=== PATIENT | female | born 1960 | race Caucasian/White ===

== ENCOUNTER 2020-03-24 11:03 | Day surgery (SDC) | payer MEDICAID ==
[2020-03-24] MEDS ORDERED: Ropivacaine 0.5% 5 MG/ML 30 ML SDV INJECT ONE (12:00)
[2020-03-24] MEDS ORDERED: Betamethasone Acetate/Betamethasone Sod Phosphate 30 MG/5 ML MDV EPIDUR ONE (12:00)
[2020-03-24] MEDS ORDERED: Lidocaine 2% 5 ML SDV INJECT ONE (12:00)
[2020-03-24] MEDS ORDERED: Iopamidol 200-M 10 ML vial ITHECAL ONE (12:00)
--- NOTE | 2020-03-24 17:57 | OR ---
SURGEON: Francine Cedillo D.O. DATE OF PROCEDURE: 03/24/2020 PREOPERATIVE DIAGNOSES: 1. Lumbar L5-S1 degenerative disk disease. 2. Chronic low back pain. 3. Lumbar spondylosis. 4. Lumbar radiculopathy, L5-S1. POSTOPERATIVE DIAGNOSES: 1. Lumbar L5-S1 degenerative disk disease. 2. Chronic low back pain. 3. Lumbar spondylosis. 4. Lumbar radiculopathy, L5-S1. PROCEDURES PERFORMED: 1. Left S1 transforaminal epidural steroid injection. 2. Fluoroscopic guidance for needle placement. 3. Local with oral Valium for sedation. OR STAFF PRESENT: 1. Katie Rios RN. 2. RT Melanie. 3. Anny Gustafson RN. SCREENING QUESTIONS: The patient answered "no" to all of the following questions: 1. Are you allergic to iodine, Betadine or latex? 2. Do you have a bleeding disorder? 3. Do you have any joint replacements, heart valve replacements, or a pacemaker? 4. Are you allergic to anti-inflammatories or blood thinners? 5. Do you have any current local or systemic infections? DESCRIPTION OF PROCEDURE: The patient had the procedure thoroughly explained including risks, benefits and alternatives. Consent was signed in my clinic indicating understanding and willingness to proceed. The patient presented to [facility] [place] where the patient was escorted to the dressing room to disrobe and change into a hospital gown. Preoperative vital signs were taken and stable. The patient reported that Valium was taken prior to the procedure. The patient was brought to the procedure room and placed in the prone position on the table. A pillow was placed under the abdomen in order to flatten the lumbar lordosis. The back was prepped with ChloraPrep and sterilely draped. All personnel in the operating room were dressed in appropriate attire including surgical scrubs, head and shoe covers. This was to ensure sterility while in the treatment room. During the time fluoroscopy was in use, all personnel in the operating room wore lead wallace with thyroid collars. Sterile technique was used during the procedure. The fluoroscope was placed for the left S1 transforaminal epidural steroid injection. There was no sign of infection at the skin site for needle insertion. The skin was anesthetized with 2% lidocaine with a 27 gauge 1-1/2 inch needle. Then a 22 gauge 3-1/2 inch spinal needle, advanced to the S1. Under direct fluoroscopic guidance needle position was verified in three views; AP, oblique and lateral, with 0.2 cubic centimeters increments of Isovue-200 dye. No intravascular flow pattern was observed under live fluoroscopy. Then 12 milligrams of Celestone was slowly injected after negative aspiration of heme, cerebrospinal fluid and no paresthesias were noted. The needle was cleared prior to removal from the skin. No adverse reactions were noted. The patient was brought to the recovery room awake and in good condition by my staff. The patient was monitored and discharge instructions were given after a brief stay in the recovery area. Both oral and written discharge and follow up instructions were given. The patient will follow up in the clinic in 3-4 weeks post procedure to evaluate the efficacy. The patient verbalized understanding including understanding of those signs and symptoms that would require emergency care and knows how to contact the office if there are any problems or questions in the meantime. PREOPERATIVE PAIN: 5/10. POSTOPERATIVE PAIN: 2/10. FOLLOWUP: In the Pain Clinic in 3 weeks. TARAN / JOSE /[id number] KEREN
== END 2020-03-24 13:05 | disposition home or self-care (01) ==
LOC: MW.SDS 11:03
PROVIDERS: ATTEND Anesthesiology
DX: G89.29 Other chronic pain (principal); M51.17 Intervertebral disc disorders with radiculopathy, lumbosacral region; M51.16 Intervertebral disc disorders with radiculopathy, lumbar region; M47.27 Other spondylosis with radiculopathy, lumbosacral region; M79.18 Myalgia, other site; E78.5 Hyperlipidemia, unspecified; F41.8 Other specified anxiety disorders; K21.9 Gastro-esophageal reflux disease without esophagitis; E03.9 Hypothyroidism, unspecified; Z79.890 Hormone replacement therapy; Z87.828 Personal history of other (healed) physical injury and trauma; Z88.2 Allergy status to sulfonamides; Z79.899 Other long term (current) drug therapy; Z87.891 Personal history of nicotine dependence
CPT/HCPCS: 64483; J0702; J2001; J2795; Q9966; 62323

== ENCOUNTER 2020-08-05 08:26 | Day surgery (SDC) | payer MEDICAID ==
[~2020-08-05 08:26] MED LIST: Glycopyrrolate 0.2 MG/ML SDV ONE; Lactated Ringers 1,000 ML IV SCH; Lidocaine 2% 5 ML SDV ONE; Midazolam 1 MG/ML 2 ML SDV ONE; Propofol 200 MG/20 ML SDV ONE
--- NOTE | 2020-08-05 09:25 | PCM.PREANE ---
Preanesthetic Assessment - Anesthesia/Transfusion/Family Hx Anesthesia History: Prior Anesthesia Without Reaction Other Type of Anesthesia Reaction Comment: denies any problems with anesthesia Family History of Anesthesia Reaction: No Transfusion History: No Prior Transfusion(s) - Review of Systems General: No Symptoms Pulmonary: No Symptoms Cardiovascular: No Symptoms Gastrointestinal: No Symptoms Neurological: No Symptoms Other: Reports: None - Physical Assessment NPO Status Date: 08/04/20 Height: 5 ft 4 in Weight: 79.379 kg ASA Class: 2 Mental Status: Alert & Oriented x3 Airway Class: Mallampati = 2 Dentition: Reports: Normal Dentition, Point Roberts(s) ROM/Head Extension: Full Lungs: Clear to Auscultation, Normal Respiratory Effort Cardiovascular: Regular Rate, Regular Rhythm - Allergies Allergies/Adverse Reactions: Allergies Allergy/AdvReac Type Severity Reaction Status Date / Time Dairy Products Allergy Stomach Verified 07/30/20 09:32 Upset sulfamethoxazole Allergy Drowsiness Verified 07/30/20 08:56 - Blood Blood Available: No - Anesthesia Plan Pre-Op Medication Ordered: None - Acknowledgements Anesthesia Type Planned: General Anesthesia (tiva) Pt an Appropriate Candidate for the Planned Anesthesia: Yes Alternatives and Risks of Anesthesia Discussed w Pt/Guardian: Yes Pt/Guardian Understands and Agrees with Anesthesia Plan: Yes Additional Comments: anes prob list: anx, gerd PLAN: tiva PreAnesthesia Questionnaire HEENT History: Reports: Other (See Below) Other HEENT History: wears glasses Cardiovascular History: Reports: None Respiratory History: Reports: None Gastrointestinal History: Reports: Chronic Constipation, Diverticulosis, GERD Genitourinary History: Reports: None Musculoskeletal History: Reports: Back Pain, Chronic Other Musculoskeletal History: chronic back and leg pain, DDD, herniated lumbar discs Neurological History: Reports: Migraines Psychiatric History: Reports: Anxiety, Depression Endocrine/Metabolic History: Reports: Hypothyroidism Hematologic History: Reports: None Immunologic History: Reports: None Oncologic (Cancer) History: Reports: None Dermatologic History: Reports: None - Infectious Disease History Infectious Disease History: Reports: None - Past Surgical History Head Surgeries/Procedures: Reports: None HEENT Surgical History: Reports: None Cardiovascular Surgical History: Reports: None Respiratory Surgical History: Reports: None GI Surgical History: Reports: Cholecystectomy, Colonoscopy, EGD Female Surgical History: Reports: Breast Biopsy, D&C, Hysterectomy, Salpingo-Oophorectomy Other Female Surgeries/Procedures: laparotomy with ovarian cystectomy, needle core left breast biopsy Endocrine Surgical History: Reports: None Neurological Surgical History: Reports: None Musculoskeletal Surgical History: Reports: Other (See Below) Other Musculoskeletal Surgeries/Procedures:: cyst removed from foot Oncologic Surgical History: Reports: Biopsy of Breast Dermatological Surgical History: Reports: None - SUBSTANCE USE Tobacco Use Status *Q: Former Tobacco User Tobacco Use Within Last Twelve Months: No - HOME MEDS Home Medications: Home Meds Cholecalciferol (Vitamin D3) [Vitamin D3] 2,000 unit PO DAILY 08/26/14 [History] Escitalopram Oxalate 10 mg PO DAILY 07/30/20 [History] Esomeprazole Magnesium [Nexium] 1 tab PO ASDIRECTED PRN 07/30/20 [History] Levothyroxine Sodium [Synthroid] 75 mcg PO DAILY 07/30/20 [History] Sennosides/Docusate Sodium [Senna-Docusate Sodium Tablet] 4 - 8 tab PO BEDTIME PRN 07/30/20 [History] oxyCODONE HCl [Oxycodone HCl] 10 mg PO QID PRN 07/30/20 [History] tiZANidine HCl [Tizanidine HCl] 4 mg PO BEDTIME 07/30/20 [History] - CURRENT (IN HOUSE) MEDS Current Meds: Current Medications Lactated Ringer's (Ringers, Lactated) 1,000 mls @ 125 mls/hr IV ASDIRECTED FIGUEROA Discontinued Medications Glycopyrrolate (Robinul) Confirm Administered Dose 0.2 mg .ROUTE .STK-MED ONE Stop: 08/05/20 07:16 Lidocaine (Xylocaine-Mpf 2%) Confirm Administered Dose 5 ml .ROUTE .STK-MED ONE Stop: 08/05/20 07:16 Midazolam HCl (Versed 1 Mg/Ml) Confirm Administered Dose 2 mg .ROUTE .STK-MED ONE Stop: 08/05/20 07:16 Propofol (Diprivan 20 Ml) Confirm Administered Dose 600 mg .ROUTE .STK-MED ONE Stop: 08/05/20 07:16
--- NOTE | 2020-08-05 10:31 | PCM.OPNOTE ---
- General Post-Op/Procedure Note Date of Surgery/Procedure: 08/05/20 Operative Procedure(s): egd w bx. colonoscopy w bx Findings: see [id number] Pre Op Diagnosis: change in bowel habits and gerd Post-Op Diagnosis: Same Anesthesia Technique: Moderate Sedation Primary Surgeon: Lizandro Field Pathology: egd bx random colon bx Complications: None Condition: Good
[2020-08-05 10:37] VITALS: BP 105/49; PULSE 69
--- NOTE | 2020-08-05 10:51 | PCM.POSTAN ---
POST ANESTHESIA ASSESSMENT - MENTAL STATUS Mental Status: Alert, Oriented - VITAL SIGNS Vital Signs: Last Vital Signs Temp 96.8 F L 08/05/20 09:30 Pulse 69 08/05/20 10:35 Resp 11 L 08/05/20 10:35 BP 105/49 L 08/05/20 10:35 Pulse Ox 94 L 08/05/20 10:35 - RESPIRATORY Respiratory Status: Respiratory Rate WNL, Airway Patent, O2 Saturation Stable - CARDIOVASCULAR CV Status: Pulse Rate WNL, Blood Pressure Stable - GASTROINTESTINAL GI Status: No Symptoms - POST OP HYDRATION Hydration Status: Adequate & Stable
--- NOTE | 2020-08-05 10:51 | PCM48HPAN ---
Post Anesthesia Note - EVALUATION WITHIN 48HRS OF ANESTHETIC Vital Signs in Normal Range: Yes Patient Participated in Evaluation: Yes Respiratory Function Stable: Yes Airway Patent: Yes Cardiovascular Function Stable: Yes Hydration Status Stable: Yes Pain Control Satisfactory: Yes Nausea and Vomiting Control Satisfactory: Yes Mental Status Recovered: Yes Vital Signs: Last Vital Signs Temp 96.8 F L 08/05/20 09:30 Pulse 69 08/05/20 10:35 Resp 11 L 08/05/20 10:35 BP 105/49 L 08/05/20 10:35 Pulse Ox 94 L 08/05/20 10:35
--- NOTE | 2020-08-05 15:52 | OR ---
SURGEON: Lizandro Field MD DATE OF PROCEDURE: 08/05/2020 PREOPERATIVE DIAGNOSES: Change in bowel habit and acid reflux. PROCEDURES PERFORMED: Esophagogastroduodenoscopy with biopsy and colonoscopy with random biopsy. DESCRIPTION OF PROCEDURE: EGD: The patient was taken to the endoscopy room, and with the BOTTLE BLOWING MACHINE TENDER, Diprivan was administered. A well-lubricated EGD scope was gently inserted through the oropharynx, down the esophagus, passing through the gastroesophageal junction, into the stomach. The mucosa was examined upon the passage. Any etiology will be noted. Once in the stomach, we continued to advance to the distal antrum, passed through the pylorus into the second portion of the duodenum. Again, the mucosa was examined for any abnormality and etiology. The scope was then retrieved back to the stomach and then retroflexed to look at the fundus of the stomach. If a biopsy was indicated, we will biopsy the antrum, body, and gastroesophageal junction. The air will be sucked out while the scope is retrieved to reduce the patient's discomfort. The patient tolerated the procedure well. There were no intraoperative complications. Dr. Field was present through the whole procedure. Prior to surgery, a time-out had been called, the patient identified, procedure identified and antibiotic administered. The patient was taken to the endoscopy room. A time out was called, patient identified, and procedure identified. Diprivan was then administrated. Patient went from awake to sleep, hearing doctor talking or door closing is normal. Perineum inspection and digital examination were then performed. A well- lubricated colonoscope was gently inserted through the rectum, advanced past the rectosigmoid junction, the descending colon, splenic flexure, transverse colon, hepatic flexure, ascending colon, arrived to the cecum. Cecum was identified as dictated in the finding. Then the scope was carefully withdrawn while attention was paid to the mucosal surface for any abnormality. Air will be sucked out during the scope withdrawal. At the rectum, retroflexed to examine any rectal diseases, fistula or hemorrhoids. During mucosal examination, abnormality or polyp was noted; picture taken and biopsy performed. Patient tolerated procedure well. There were no intraoperative complications, and Dr. Field was present throughout the whole procedure. FINDINGS: EGD findings: 1. The patient is easily sedated with BOTTLE BLOWING MACHINE TENDER and Diprivan, the patient is soundly snoring. 2. Proximal esophagus at distance 33 cm at GE junction has a little pathology and no stricture, inflammation, ulcer, none of those. At GE junction at 33, the patient shows flame like salmon-colored change, suggests moderate amount of acid reflux and no ulcer observed. Antrum is a little bit inflamed. Duodenum is grossly normal. Retroflexed look at the fundus of stomach, the patient has mild hiatal hernia. Biopsy done at antrum, body, and GE junction at 33 and sucked out the gas while scope pulling out. During the whole study, there is no blood, ulcer, or food particle observed. The patient also had some very tiny polyps in the stomach and one of them was biopsied. Colonoscopy findings: 1. The patient is easily sedated with BOTTLE BLOWING MACHINE TENDER and Diprivan, the patient is soundly snoring. 2. Bowel prep is left to be desirable. It is not very bad, but do have some moderate amount of liquid stool and required some irrigation. No semi- formed stool, no stool ball. The patient's colon rather straightforward. Cecum indicated by ileocecal fold, one-to-one indentation, appendiceal orifice. ScopeGuide is pointing south. Mucosa examined upon scope pulling out with constant irrigation. The patient does not have diverticulosis, polyp, mass, growth, inflammation, stricture, AV malformation, none of those. Random biopsies done as the patient has alternating constipation and diarrhea. The patient has some anal tags, suggests hemorrhoid in the past. The patient also has some external hemorrhoids. The patient would benefit from repeat colonoscopy, depends on the pathology of the random biopsy. YECENIA / JOSE /[id number]
== END 2020-08-05 11:10 | disposition home or self-care (01) ==
LOC: MW.SDS 08:26
PROVIDERS: ATTEND Surgery
DX: K59.00 Constipation, unspecified (principal); R19.7 Diarrhea, unspecified; K31.7 Polyp of stomach and duodenum; K21.9 Gastro-esophageal reflux disease without esophagitis; K64.4 Residual hemorrhoidal skin tags; K44.9 Diaphragmatic hernia without obstruction or gangrene; R19.5 Other fecal abnormalities; F32.9 Major depressive disorder, single episode, unspecified; E78.5 Hyperlipidemia, unspecified; E03.9 Hypothyroidism, unspecified; M79.18 Myalgia, other site; F41.9 Anxiety disorder, unspecified; Z88.2 Allergy status to sulfonamides; Z79.899 Other long term (current) drug therapy; Z79.890 Hormone replacement therapy; Z90.49 Acquired absence of other specified parts of digestive tract; Z98.890 Other specified postprocedural states; Z87.891 Personal history of nicotine dependence; Z91.011 Allergy to milk products
CPT/HCPCS: 43239; 45380; 88305; 88312; J2001; J2250; J2704; J3490; J7120

== ENCOUNTER 2020-11-10 11:25 | Day surgery (SDC) | payer MEDICAID ==
[2020-11-10] MEDS ORDERED: Betamethasone Acetate/Betamethasone Sod Phosphate 30 MG/5 ML MDV EPIDUR ONE (12:00)
[2020-11-10] MEDS ORDERED: Iopamidol 200-M 10 ML vial ITHECAL ONE (12:00)
[2020-11-10] MEDS ORDERED: Ropivacaine 0.5% 5 MG/ML 30 ML SDV INJECT ONE (12:00)
[2020-11-10] MEDS ORDERED: Lidocaine 2% 5 ML SDV INJECT ONE (12:00)
--- NOTE | 2020-11-10 15:10 | OR ---
SURGEON: Francine Cedillo D.O. DATE OF PROCEDURE: 11/10/2020 ASSISTANTS: OR staff present: 1. Anny Gustafson RN. 2. Lorraine George RN. 3. Lorraine Benson RT. WOUND CLASS: I. PREOPERATIVE DIAGNOSES: 1. Lumbar S1 radiculopathy, bilateral lower extremities. 2. Chronic low back pain. 3. Lumbar degenerative disk disease, L5-S1. POSTOPERATIVE DIAGNOSES: 1. Lumbar S1 radiculopathy, bilateral lower extremities. 2. Chronic low back pain. 3. Lumbar degenerative disk disease, L5-S1. PROCEDURES PERFORMED: 1. Right S1 transforaminal epidural steroid injection. 2. Left S1 transforaminal epidural steroid injection. 3. Fluoroscopic guidance for needle placement. 4. Local with oral Valium for sedation. SCREENING QUESTIONS: The patient answered "no" to all of the following questions: 1. Are you allergic to iodine, Betadine or latex? 2. Do you have a bleeding disorder? 3. Do you have any joint replacements, heart valve replacements, or a pacemaker? 4. Are you allergic to anti-inflammatories or blood thinners? 5. Do you have any current local or systemic infections? DESCRIPTION OF PROCEDURE: The patient had the procedure thoroughly explained including risks, benefits and alternatives. Consent was signed in my clinic indicating understanding and willingness to proceed. The patient presented to [facility] [place] where the patient was escorted to the dressing room to disrobe and change into a hospital gown. Preoperative vital signs were taken and stable. The patient reported that Valium was taken prior to the procedure. The patient was brought to the procedure room and placed in the prone position on the table. A pillow was placed under the abdomen in order to flatten the lumbar lordosis. The back was prepped with ChloraPrep and sterilely draped. All personnel in the operating room were dressed in appropriate attire including surgical scrubs, head and shoe covers. This was to ensure sterility while in the treatment room. During the time fluoroscopy was in use, all personnel in the operating room wore lead wallace with thyroid collars. Sterile technique was used during the procedure. The fluoroscope was placed for the right S1 transforaminal epidural steroid injection. There was no sign of infection at the skin site for needle insertion. The skin was anesthetized with 2% lidocaine with a 27 gauge 1-1/2 inch needle. Then, a 22 gauge 3-1/2 inch spinal needle, advanced to the right S1 and left S1. Under direct fluoroscopic guidance needle position was verified in three views; AP, oblique and lateral, with 0.2 cubic centimeters increments of Isovue-200 dye. No intravascular flow pattern was observed under live fluoroscopy.Then 6 milligrams of Celestone and local was slowly injected after negative aspiration of heme, cerebrospinal fluid and no paresthesias were noted. The needle was cleared prior to removal from the skin. The procedure was then repeated on the left as jimmie for the left S1 transforaminal epidural steroid injection. No adverse reactions were noted. The patient was brought to the recovery room awake and in good condition by my staff. The patient was monitored and discharge instructions were given after a brief stay in the recovery area. Both oral and written discharge and follow up instructions were given. The patient will follow up in the clinic in 3-4 weeks post procedure to evaluate the efficacy. The patient verbalized understanding including understanding of those signs and symptoms that would require emergency care and knows how to contact the office if there are any problems or questions in the meantime. PREOPERATIVE PAIN: 6/10. POSTOPERATIVE PAIN: 2/10. FOLLOWUP: In the Pain Clinic in 3 weeks. TARAN / JOSE /[id number]
== END 2020-11-10 13:04 ==
LOC: MW.SDS 11:25
PROVIDERS: ATTEND Anesthesiology
DX: G89.29 Other chronic pain (principal); M51.17 Intervertebral disc disorders with radiculopathy, lumbosacral region; M47.26 Other spondylosis with radiculopathy, lumbar region; M47.27 Other spondylosis with radiculopathy, lumbosacral region; M51.16 Intervertebral disc disorders with radiculopathy, lumbar region; E78.5 Hyperlipidemia, unspecified; K21.9 Gastro-esophageal reflux disease without esophagitis; M79.18 Myalgia, other site; E03.9 Hypothyroidism, unspecified; E55.9 Vitamin D deficiency, unspecified; Z88.2 Allergy status to sulfonamides; Z88.8 Allergy status to other drugs, medicaments and biological substances; Z90.49 Acquired absence of other specified parts of digestive tract; Z98.890 Other specified postprocedural states; Z79.899 Other long term (current) drug therapy; Z87.891 Personal history of nicotine dependence
CPT/HCPCS: 64483; J0702; J2001; J2795; Q9966

== ENCOUNTER 2023-02-27 06:33 | Day surgery (SDC) | payer BC, MEDICAID ==
[~2023-02-27 06:33] MED LIST changes: -Glycopyrrolate 0.2 MG/ML SDV ONE; -Lidocaine 2% 5 ML SDV ONE; -Midazolam 1 MG/ML 2 ML SDV ONE; -Propofol 200 MG/20 ML SDV ONE
[2023-02-27] MEDS ORDERED: Albuterol 0.083% 2.5 MG/3 ML Neb Soln NEB PRN (07:02)
[2023-02-27] MEDS ORDERED: Metoclopramide 10 MG/2 ML SDV IVPUSH PRN (07:02)
[2023-02-27] MEDS ORDERED: droPERidol 5 MG/2 ML SDV IVPUSH PRN (07:02)
[2023-02-27] MEDS ORDERED: Morphine 2 MG/ML SYRINGE IVPUSH PRN (07:02)
[2023-02-27] MEDS ORDERED: Ondansetron 4 MG/2 ML SDV IVPUSH PRN (07:02)
[2023-02-27] MEDS ORDERED: fentaNYL 50 MCG/ML SDV IVPUSH PRN (07:02)
[2023-02-27] MEDS ORDERED: Naloxone 0.4 MG/ML SDV IVPUSH PRN (07:02)
[2023-02-27] MEDS ORDERED: HYDROmorphone 1 MG/ML Syringe IVPUSH PRN (07:02)
[2023-02-27] MEDS ORDERED: propofoL 50 ML ONE (07:30)
[2023-02-27] MEDS ORDERED: Bupivacaine 0.5% 30 ML SDV ONE (07:31)
[2023-02-27] MEDS ORDERED: Dexmedetomidine 200 MCG/2 ML SDV ONE (07:31)
[2023-02-27] MEDS ORDERED: Water For Injection, Sterile 20 ML ONE (07:31)
[2023-02-27] MEDS ORDERED: fentaNYL 100 MCG/2 ML SDV ONE (07:42)
[2023-02-27] MEDS ORDERED: Lidocaine 1% 20 ML MDV ONE (07:59)
[2023-02-27] MEDS ORDERED: Lidocaine 2% 5 ML SDV ONE (08:02)
[2023-02-27] MEDS ORDERED: Acetaminophen/HYDROcodone 325-5 MG Tab PO PRN (08:37)
[2023-02-27] MEDS ORDERED: Lactated Ringers 1,000 ML IV SCH (08:45)
[2023-02-27 09:46] VITALS: BP 99/56; PULSE 48
== END 2023-02-27 09:22 | disposition home or self-care (01) ==
LOC: MW.SDS 06:33
PROVIDERS: ATTEND Surgery
DX: D17.1 Benign lipomatous neoplasm of skin and subcutaneous tissue of trunk (principal); R53.83 Other fatigue; K59.00 Constipation, unspecified; M51.37 Other intervertebral disc degeneration, lumbosacral region; F32.A Depression, unspecified; F41.8 Other specified anxiety disorders; E78.5 Hyperlipidemia, unspecified; K21.9 Gastro-esophageal reflux disease without esophagitis; E03.9 Hypothyroidism, unspecified; R73.9 Hyperglycemia, unspecified; Z88.2 Allergy status to sulfonamides; Z79.899 Other long term (current) drug therapy; Z90.49 Acquired absence of other specified parts of digestive tract; Z87.891 Personal history of nicotine dependence; Z80.1 Family history of malignant neoplasm of trachea, bronchus and lung
CPT/HCPCS: 21932; J2704; J3010; J3490; J7120; 00300